=== PATIENT | female | born 1980 | race Two or more races ===

== ENCOUNTER 2021-01-24 08:30 | Inpatient (IN) | payer OTHER ==
[~2021-01-24] VITALS: Ht 154.9 cm; Wt 3.2 kg
[2021-03-03] MEDS ORDERED: PRENATAL CAPLE1 EAC1 PO (03:34)
== END 2021-03-06 14:58 | disposition home or self-care (01) | DRG 788 ==
LOC: LDR 02-02 08:30 → O/R 03-03 02:48 → LDR 03-03 02:48 → O/R 03-03 05:33 → SURG-SUITE 03-03 13:39 → LDR 03-04 08:30 → SURG-SUITE 03-06 14:58
PROVIDERS: ADMIT Student in an Organized Health Care Education/Training Program; ATTEND Student in an Organized Health Care Education/Training Program
PROC: 4A1HXFZ Monitoring of Products of Conception, Cardiac Rhythm, External Approach (ICD-10-PCS; 2021-03-03)
PROC: 10D00Z1 Extraction of Products of Conception, Low, Open Approach (ICD-10-PCS; principal; 2021-03-03 03:45)
DX: O34.211 Maternal care for low transverse scar from previous cesarean delivery (principal); Z37.0 Single live birth; Z3A.39 39 weeks gestation of pregnancy; Z20.822 Contact with and (suspected) exposure to COVID-19